=== PATIENT | male | born 1990 | race Caucasian/White ===

== ENCOUNTER 2017-11-15 03:07 | Emergency (ER) | payer BC ==
[~2017-11-15] VITALS: Ht 185.4 cm; Wt 68.0 kg
== END 2017-11-15 10:20 | disposition short-term general hospital (02) ==
LOC: ED 03:07
DX: S32.019A Unspecified fracture of first lumbar vertebra, initial encounter for closed fracture (principal); S82.51XA Displaced fracture of medial malleolus of right tibia, initial encounter for closed fracture; S12.600A Unspecified displaced fracture of seventh cervical vertebra, initial encounter for closed fracture; R31.9 Hematuria, unspecified; Q61.3 Polycystic kidney, unspecified; V47.6XXA Car passenger injured in collision with fixed or stationary object in traffic accident, initial encounter; Z88.2 Allergy status to sulfonamides
CPT/HCPCS: 70450; 71260; 72125; 72141; 73610; 74177; 80053; 81001; 82150; 82550; 83690; 85025; 86850; 86900; 86901; 90471; 90715; 96361; 96374; 96375; 99285; G0480; J1170; J2405; J3010; J7030; Q9967

== ENCOUNTER 2017-11-22 09:31 | Emergency (ER) | payer BC ==
[~2017-11-22] VITALS: Ht 185.4 cm; Wt 68.0 kg
[2017-11-22] MEDS ORDERED: OXYCODONE HCL5 MG PO (09:43)
[2017-11-22] MEDS ORDERED: KETOROLAC TROME10 MG PO (09:57)
[2017-11-22] MEDS ORDERED: NORCO 5-325 TA1 EACH PO (09:57)
== END 2017-11-22 10:07 | disposition home or self-care (01) ==
LOC: ED 09:31
DX: Z76.0 Encounter for issue of repeat prescription (principal); F17.200 Nicotine dependence, unspecified, uncomplicated; Z88.2 Allergy status to sulfonamides; Z79.891 Long term (current) use of opiate analgesic
CPT/HCPCS: 99281

== ENCOUNTER 2020-09-05 15:42 | Emergency (ER) | payer SELFPAY ==
[~2020-09-05] VITALS: Ht 182.9 cm; Wt 72.6 kg
[~2020-09-05 15:42] MED LIST: KETOROLAC TROME10 MG PO; NORCO 5-325 TA1 EACH PO; OXYCODONE HCL5 MG PO
== END 2020-09-05 17:26 | disposition home or self-care (01) ==
LOC: ED 15:42
DX: F10.129 Alcohol abuse with intoxication, unspecified (principal); K29.70 Gastritis, unspecified, without bleeding; F17.200 Nicotine dependence, unspecified, uncomplicated; Z88.2 Allergy status to sulfonamides
CPT/HCPCS: 99283; J7030